=== PATIENT | female | born 1980 | race Caucasian/White ===

== ENCOUNTER 2018-10-24 16:26 | Emergency (ER) | END 2018-10-24 18:45 | disposition left against medical advice (07) ==

== ENCOUNTER 2018-10-25 12:03 | Inpatient (IN) | END 2018-10-27 11:15 | disposition home or self-care (01) | DRG 419 ==

== ENCOUNTER 2018-11-07 10:39 | Emergency (ER) | END 2018-11-07 14:38 | disposition home or self-care (01) ==